=== PATIENT | female | born 2000 | race Caucasian/White ===

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

== ENCOUNTER 2019-10-25 01:08 | Emergency (ER) | payer OTHER ==
--- NOTE | 2019-10-25 01:38 | ED ---
Abdominal Pain HPI - General Chief Complaint: Abdominal Pain Stated Complaint: Abdominal pain Time Seen by Provider: 10/25/19 01:20 Source: patient, RN notes reviewed, old records reviewed Mode of arrival: ambulatory Limitations: no limitations - History of Present Illness Initial Comments: Patient is a 19-year-old female presents emergency department today for evaluation for 2 days of difficulty with urinating after having intercourse. She plans a suprapubic pain towards the lower back starting this morning. Patient states she's had no abnormal vaginal discharge. She denies any concern for STDs. She states that her last menstrual period finished 10 days ago. She reports that she's had no nausea or vomiting. - Related Data Home Medications Medication Instructions Recorded Confirmed QUEtiapine [SEROquel] 50 mg PO HS 07/10/17 07/10/17 Sertraline [Zoloft] 50 mg PO DAILY 07/10/17 07/10/17 Previous Rx's Medication Instructions Recorded Ibuprofen [Motrin] 600 mg PO Q8HR PRN #20 tab 06/07/18 Cephalexin [Keflex] 500 mg PO Q6H #40 cap 10/25/19 Phenazopyridine [Pyridium] 100 mg PO TID #9 tablet 10/25/19 Allergies Allergy/AdvReac Type Severity Reaction Status Date / Time No Known Allergies Allergy Verified 10/25/19 01:15 Review of Systems ROS Statement: Those systems with pertinent positive or pertinent negative responses have been documented in the HPI. ROS Other: All systems not noted in ROS Statement are negative. Past Medical History Additional Past Medical History / Comment(s): suicidal attempt 2 years ago History of Any Multi-Drug Resistant Organisms: None Reported Past Surgical History: Orthopedic Surgery Past Psychological History: ADD/ADHD, Anxiety, Depression Smoking Status: Vaper Past Alcohol Use History: None Reported Past Drug Use History: None Reported General Exam - General Exam Comments Initial Comments: 19-year-old female. Alert and oriented 3. Patient appears in no acute distress. Limitations: no limitations General appearance: alert, in no apparent distress Head exam: Present: atraumatic, normocephalic, normal inspection Eye exam: Present: normal appearance, PERRL, EOMI. Absent: scleral icterus, conjunctival injection, periorbital swelling ENT exam: Present: normal exam, mucous membranes moist Neck exam: Present: normal inspection. Absent: tenderness, meningismus, lymphadenopathy Respiratory exam: Present: normal lung sounds bilaterally. Absent: respiratory distress, wheezes, rales, rhonchi, stridor Cardiovascular Exam: Present: regular rate, normal rhythm, normal heart sounds. Absent: systolic murmur, diastolic murmur, rubs, gallop, clicks GI/Abdominal exam: Present: soft, tenderness (Superpubic tenderness), normal bow el sounds. Absent: distended, guarding, rebound, rigid Extremities exam: Present: normal inspection, full ROM, normal capillary refill. Absent: tenderness, pedal edema, joint swelling, calf tenderness Back exam: Present: normal inspection Neurological exam: Present: alert Psychiatric exam: Present: normal affect, normal mood Skin exam: Present: warm, dry, intact, normal color. Absent: rash Course Vital Signs 10/25/19 01:12 Temperature 98.5 F Pulse Rate 98 Respiratory 20 Rate Blood Pressure 118/83 O2 Sat by Pulse 100 Oximetry Medical Decision Making - Medical Decision Making 19-year-old female presented today with complaints of UTI symptoms polyuria after having intercourse. Denies vaginal discharge. Urine was sent for chlamydia and gonorrhea testing. Patient urinalysis is positive for white blood cells and red blood cells. She is no CVA tenderness at this time. Patient will be given IM Rocephin and Toradol for discomfort. Advised Patient to increase fluid intake and will write the Patient for Keflex for antibiotic. Advised close follow-up with primary care doctor. - Lab Data Lab Results 10/25/19 10/25/19 Range/Units 01:36 01:36 Urine Color Yellow Urine Appearance Cloudy H (Clear) Urine pH 7.0 (5.0-8.0) Ur Specific [place] 1.016 (1.001-1.035) Urine Protein 2+ H (Negative) Urine Glucose (UA) Negative (Negative) Urine Ketones Negative (Negative) Urine Blood Moderate H (Negative) Urine Nitrite Negative (Negative) Urine Bilirubin Negative (Negative) Urine Urobilinogen <2.0 (<2.0) mg/dL Ur Leukocyte Esterase Large H (Negative) Urine RBC >182 H (0-5) /hpf Urine WBC >182 H (0-5) /hpf Urine WBC Clumps Few H (None) /hpf Ur Squamous Epith Cells 6 H (0-4) /hpf Urine Bacteria Rare H (None) /hpf Urine Mucus Rare H (None) /hpf Urine HCG, Qual Not Detected (Not Detectd) Disposition Clinical Impression: UTI (urinary tract infection) Disposition: HOME SELF-CARE Condition: Stable Instructions (If sedation given, give patient instructions): Urinary Tract Infection in Women (ED) Additional Instructions: Patient advised follow-up with your primary care physician. Take the entire prescription of antibiotics. Return to the ED if any alarming signs or symptoms occur. Prescriptions: Cephalexin [Keflex] 500 mg PO Q6H #40 cap Phenazopyridine [Pyridium] 100 mg PO TID #9 tablet Is patient prescribed a controlled substance at d/c from ED?: No Referrals: None,Stated [Primary Care Provider] - 1-2 days Time of Disposition: 02:02
[2019-10-25 01:49] LABS: Appearance,Urine Cloudy (Clear); Bacteria,Urine Rare /hpf; Bilirubin,Urine Negative (Negative); Blood,Urine Moderate (Negative); Color,Urine Yellow; Glucose,Urine (UA) Negative (Negative); Ketones,Urine Negative (Negative); Leukocyte Esterase,Urine Large (Negative); Mucus,Urine Rare /hpf; Nitrite,Urine Negative (Negative); Protein,Urine 2+ (Negative); RBC,Urine >182 /hpf (0-5); Specific Gravity,Urine 1.016 (1.001-1.035); Squamous Epithelial Cell,Urine 6 /hpf (0-4); Urobilinogen,Urine <2.0 mg/dL (<2.0); WBC,Urine >182 /hpf (0-5)
[2019-10-25] MEDS ORDERED: PHENAZOPYRIDINE 100 MG TAB PO STA (01:56)
[2019-10-25] MEDS ORDERED: cefTRIAXone 1,000 MG VIAL (IM USE) IM STA (01:56)
[2019-10-25] MEDS ORDERED: KETOROLAC 15 MG/ML 1 ML VIAL IM STA (01:56)
[2019-10-25 05:43] VITALS: BP 99/53; PULSE 68; RESP 19; TEMP 98.6
[2019-10-26 16:14] LABS: C. trachomatis,PCR Positive (Neg,Equiv); Chlamydia trachomatis Source Urine; N. gonorrhoeae,PCR Negative (Neg,Equiv); Neisseria Source Urine
== END 2019-10-25 02:45 | disposition home or self-care (01) ==
LOC: EC 01:08
DX: N39.0 Urinary tract infection, site not specified (principal); F32.9 Major depressive disorder, single episode, unspecified; F41.9 Anxiety disorder, unspecified; F17.290 Nicotine dependence, other tobacco product, uncomplicated; Z79.899 Other long term (current) drug therapy
CPT/HCPCS: 81001; 81025; 87491; 87591; 87086; 99284; 96372 ×2; J0696; J1885

== ENCOUNTER 2019-11-29 13:31 | Emergency (ER) | payer OTHER ==
[2019-11-29 13:36] VITALS: BP 114/79; PULSE 64; RESP 20; TEMP 98.1
--- NOTE | 2019-11-29 14:40 | ED ---
General Adult HPI - General Chief complaint: Upper Respiratory Infection Stated complaint: Wants COVID Test Source: patient, RN notes reviewed, old records reviewed Mode of arrival: ambulatory Limitations: no limitations - History of Present Illness Initial comments: 19-year-old female patient presented to ED for evaluation of nonproductive cough chest congestion. Patient reports that for the last 3 days she had a sore throat which has since resolved. He reports that she feels that her sinuses are congested and her chest slowly congested. She denies any chest pain shortness of breath. Denies abdominal pain. Denies . Denies any recent surgeries exogenous hormones or history of coagulation disorder. Patient is requesting Covid test. Systemic: Pt denies fatigue, fever/chills, rash. Pt denies weakness, night sweats, weight loss. Neuro: Pt denies headache, visual disturbances, syncope or pre-syncope. HEENT: Pt denies ocular discharge or irritation, otalgia, rhinorrhea, pharyngitis or notable lymphadenopathy. Cardiopulmonary: Pt denies chest pain, SOB, heart palpitations, dyspnea on exertion. Abdominal/GI: Pt denies abdominal pain, n/v/d. : Pt denies dysuria, burning w/ urination, frequency/urgency. Denies new onset urinary or bowel incontinence. MSK: Pt denies myalgia, loss of strength or function in extremities. Neuro: Pt denies new onset weakness, paresthesias. - Related Data Previous Rx's Medication Instructions Recorded Albuterol Inhaler [Ventolin Hfa 1 - 2 puff INHALATION RT-QID PRN 11/29/19 Inhaler] #1 inhaler Allergies Allergy/AdvReac Type Severity Reaction Status Date / Time No Known Allergies Allergy Verified 11/29/19 15:14 Review of Systems ROS Statement: Those systems with pertinent positive or pertinent negative responses have been documented in the HPI. ROS Other: All systems not noted in ROS Statement are negative. Past Medical History Additional Past Medical History / Comment(s): suicidal attempt 2 years ago History of Any Multi-Drug Resistant Organisms: None Reported Past Surgical History: Orthopedic Surgery Additional Past Surgical History / Comment(s): lt arm,lt collar bone Past Psychological History: ADD/ADHD, Anxiety, Depression Smoking Status: Vaper Past Alcohol Use History: None Reported Past Drug Use History: None Reported General Exam - General Exam Comments Initial Comments: Constitutional: NAD, AOX3, Pt has pleasant affect. HEENT: NC/AT, trachea midline, neck supple, no lymphadenopathy. Posterior pharynx non erythematous, without exudates. External ears appear normal, without discharge. Mucous membranes moist. Eyes PERRLA, EOM intact. There is no scleral icterus. No pallor noted. Cardiopulmonary: RRR, no murmurs, rubs or gallops, no JVD noted. Lungs CTAB in anterior and posterior morton. No peripheral edema. Abdominal exam: Abdomen soft and non-distended. Abdomen non-tender to palpation in all 4 quadrants. Bowel sounds active in LLQ. No hepatosplenomegaly. No ecchymosis Neuro: CN II-XII grossly intact. No nuchal rigidity. MSK: No posterior calf tenderness bilaterally, homans sign negative bilaterally. Posterior tibialis and radial pulse +2 bilaterally. Sensation intact in upper and lower extremities. Full active ROM in upper and lower extremities, 5/5 stregnth. Limitations: no limitations Course Vital Signs 11/29/19 13:32 Temperature 98.1 F Pulse Rate 64 Respiratory 20 Rate Blood Pressure 114/79 O2 Sat by Pulse 99 Oximetry Medical Decision Making - Medical Decision Making 19-year-old female patient was ED for nasal congestion, cough. Patient vital signs stable, afebrile. Physical exam tenths acute pathology. Chest: Negative for acute process. UA negative for . Contaminated sample, was cultured and patient have repeat by primary care. Covid test pending. Patient denies use [id number] decongestants. Was prescribed an albuterol inhaler to use as needed. Which revealed any worsening symptoms. Case discussed with Dr. Armendariz. - Lab Data Lab Results 11/29/19 11/29/19 Range/Units 14:15 14:15 Urine Color Yellow Urine Appearance Cloudy H (Clear) Urine pH 5.5 (5.0-8.0) Ur Specific [place] 1.026 (1.001-1.035) Urine Protein Trace H (Negative) Urine Glucose (UA) Negative (Negative) Urine Ketones Negative (Negative) Urine Blood Negative (Negative) Urine Nitrite Negative (Negative) Urine Bilirubin Negative (Negative) Urine Urobilinogen <2.0 (<2.0) mg/dL Ur Leukocyte Esterase Negative (Negative) Urine WBC 6 H (0-5) /hpf Ur Squamous Epith Cells 23 H (0-4) /hpf Calcium Oxalate Crystal Few H (None) /hpf Urine Bacteria Rare H (None) /hpf Urine Mucus Few H (None) /hpf Urine HCG, Qual Not Detected (Not Detectd) Disposition Clinical Impression: Cough Disposition: HOME SELF-CARE Condition: Serious Instructions (If sedation given, give patient instructions): Acute Cough (ED) Additional Instructions: Follow up with PCP tomorrow. Use inhaler as needed. Have repeat UA by PCP. Self quarentine until coronavirus test result. Return to ED with any worsening symptoms. Prescriptions: Albuterol Inhaler [Ventolin Hfa Inhaler] 1 - 2 puff INHALATION RT-QID PRN #1 inhaler PRN Reason: wheezing Is patient prescribed a controlled substance at d/c from ED?: No Referrals: None,Stated [Primary Care Provider] - 1-2 days eBrnadine Porter MD [REFERRING] - 1-2 days
--- NOTE | 2019-11-29 14:56 | XR ---
EXAMINATION TYPE: XR chest 2V DATE OF EXAM: 11/29/2019 COMPARISON: 1999 INDICATION: Cough TECHNIQUE: Frontal and lateral views of the chest are obtained. FINDINGS: The heart size is normal. The pulmonary vasculature is normal. Lung morton appear clear. Some shadowing is at the bilateral lung bases. Old repair of a right clavic ular fracture is evident. IMPRESSION: 1. No acute pulmonary process.
[2019-11-29 15:06] LABS: Appearance,Urine Cloudy (Clear); Bacteria,Urine Rare /hpf; Bilirubin,Urine Negative (Negative); Blood,Urine Negative (Negative); Calcium Oxalate Crystals,Urine Few /hpf; Color,Urine Yellow; Glucose,Urine (UA) Negative (Negative); Ketones,Urine Negative (Negative); Leukocyte Esterase,Urine Negative (Negative); Mucus,Urine Few /hpf; Nitrite,Urine Negative (Negative); PH, Urine 5.5 (5.0-8.0); Protein,Urine Trace (Negative); Specific Gravity,Urine 1.026 (1.001-1.035); Squamous Epithelial Cell,Urine 23 /hpf (0-4); Urobilinogen,Urine <2.0 mg/dL (<2.0); WBC,Urine 6 /hpf (0-5)
== END 2019-11-29 15:41 | disposition home or self-care (01) ==
LOC: EC 13:31
DX: R05 Cough (principal); R09.81 Nasal congestion; Z20.828 Contact with and (suspected) exposure to other viral communicable diseases; F17.290 Nicotine dependence, other tobacco product, uncomplicated; Z91.5 Personal history of self-harm
CPT/HCPCS: 81001; 81025; 87086; 71046; 99284; U0003

== ENCOUNTER 2020-07-10 20:22 | Emergency (ER) | payer OTHER ==
[2020-07-10] MEDS ORDERED: DEXAMETHASONE SOD PHOSPHATE 10 MG/ML 1 ML VIAL PO STA (20:35)
[2020-07-10] MEDS ORDERED: IBUPROFEN 600 MG STARTER PACK 4 TAB BTL PO STA (20:35)
--- NOTE | 2020-07-10 21:59 | ED ---
General Adult HPI - General Chief complaint: ENT Stated complaint: Sore throat,Body aches,Headache Time Seen by Provider: 07/10/20 20:27 Source: patient, family Mode of arrival: ambulatory - History of Present Illness Initial comments: 19-year-old female patient presents to the emergency department today for evaluation of sore throat, body aches, and nasal congestion. Patient states symptoms started last night have worsened throughout the day today. Patient states she has been chilled. She felt like she had a fever. Denies any cough or shortness of breath. Has not taken any medications today for her symptoms. Denies any sick contacts. Denies any chance of . Has not had COVID, has not had any vaccines. - Related Data Previous Rx's Medication Instructions Recorded Albuterol Inhaler [Ventolin Hfa 1 - 2 puff INHALATION RT-QID PRN 11/29/19 Inhaler] #1 inhaler Allergies Allergy/AdvReac Type Severity Reaction Status Date / Time No Known Allergies Allergy Verified 07/10/20 20:25 Review of Systems ROS Statement: Those systems with pertinent positive or pertinent negative responses have been documented in the HPI. ROS Other: All systems not noted in ROS Statement are negative. Past Medical History Additional Past Medical History / Comment(s): suicidal attempt 2 years ago History of Any Multi-Drug Resistant Organisms: None Reported Past Surgical History: Orthopedic Surgery Additional Past Surgical History / Comment(s): lt arm,lt collar bone Past Psychological History: ADD/ADHD, Anxiety, Depression Smoking Status: Vaper Past Alcohol Use History: None Reported Past Drug Use History: None Reported General Exam General appearance: alert, in no apparent distress, other (This is a well- developed, well-nourished adult female patient in no acute distress. Vital signs upon presentation Are 97.8F, pulse 69, respirations 18, blood pressure 127/72, pulse ox 100% on room air.) Eye exam: Present: normal appearance, PERRL, EOMI. Absent: scleral icterus, conjunctival injection, periorbital swelling ENT exam: Present: mucous membranes moist, TM's normal bilaterally. Absent: normal exam, normal oropharynx (Pharyngeal erythema, tonsillar hypertrophy. No tonsillar exudate. Tonsils are symmetric, uvula is midline.) Neck exam: Present: normal inspection, full ROM, lymphadenopathy (Bilateral anterior cervical). Absent: tenderness, meningismus Respiratory exam: Present: normal lung sounds bilaterally. Absent: respiratory distress, wheezes, rales, rhonchi, stridor Cardiovascular Exam: Present: regular rate, normal rhythm, normal heart sounds. Absent: systolic murmur, diastolic murmur, rubs, gallop, clicks GI/Abdominal exam: Present: soft, normal bowel sounds. Absent: distended, tenderness, guarding, rebound, rigid Neurological exam: Present: alert, oriented X3, CN II-XII intact Psychiatric exam: Present: normal affect, normal mood Skin exam: Present: warm, dry, intact, normal color. Absent: rash Course Vital Signs 07/10/20 07/10/20 20:23 22:05 Temperature 97.8 F 98.0 F Pulse Rate 69 72 Respiratory 18 16 Rate Blood Pressure 127/72 118/68 O2 Sat by Pulse 100 98 Oximetry Medical Decision Making - Medical Decision Making 19-year-old female patient presents to the emergency department today for evaluation of nasal congestion, sore throat, body aches. Did have 99.5 temperature while here. Strep and COVID-19 test were negative. She was given Decadron and ibuprofen. Upon reevaluation states she is still having sore throat. She is instructed to increase fluids and to rest. She is instructed to follow-up the primary care physician for recheck in 1-2 days. Return parameters were discussed in detail. She verbalizes understanding and agrees with this plan. My attending is Dr. Galindo. - Lab Data Lab Results 07/10/20 07/10/20 Range/Units 21:01 21:01 Coronavirus (PCR) Not Detected (Not Detectd) Group A Strep Rapid Negative (Negative) Disposition Clinical Impression: Viral pharyngitis Disposition: HOME SELF-CARE Condition: Good Instructions (If sedation given, give patient instructions): Pharyngitis (ED) Additional Instructions: Take medications as directed. Rest. Increase fluids. Follow-up through primary care physician for recheck in 1-2 days. Return for any new, worsening, or concerning symptoms. Is patient prescribed a controlled substance at d/c from ED?: No Referrals: None,Stated [Primary Care Provider] - 1-2 days Time of Disposition: 21:59
[2020-07-10 22:08] VITALS: BP 118/68; PULSE 72; RESP 16; TEMP 98
== END 2020-07-10 22:05 | disposition home or self-care (01) ==
LOC: EC 20:22
DX: J02.8 Acute pharyngitis due to other specified organisms (principal); B97.89 Other viral agents as the cause of diseases classified elsewhere; F32.9 Major depressive disorder, single episode, unspecified; F17.290 Nicotine dependence, other tobacco product, uncomplicated; Z20.822 Contact with and (suspected) exposure to COVID-19
CPT/HCPCS: 87081; 87430; 87635; 99284; J1100

== ENCOUNTER 2020-08-01 12:52 | Emergency (ER) | payer OTHER ==
[2020-08-01 12:57] VITALS: BP 110/76; PULSE 92; RESP 16; TEMP 97.9
[2020-08-01] MEDS ORDERED: AMOXIC-POT CLAV 875MG STARTER PACK 2 TAB BTL PO STA (13:13)
--- NOTE | 2020-08-01 13:14 | ED ---
General Adult HPI - General Chief complaint: ENT Stated complaint: Sore throat Time Seen by Provider: 08/01/20 13:00 Source: patient Mode of arrival: ambulatory Limitations: no limitations - History of Present Illness Initial comments: 19-year-old female presents to the emergency room for a chief, and of not feeling well. Patient states 3 days ago she started to get a bad sore throat as well as right ear pain. States every time she swallows her right ear hurts. Patient also feels congested. Patient denies fevers or chills. Patient denies cough or shortness of breath.Patient has no other complaints at this time including shortness of breath, chest pain, abdominal pain, nausea or vomiting, headache, or visual changes. - Related Data Previous Rx's Medication Instructions Recorded Albuterol Inhaler [Ventolin Hfa 1 - 2 puff INHALATION RT-QID PRN 11/29/19 Inhaler] #1 inhaler Amoxicillin/Potassium Clav 1 tab PO Q12HR #20 tab 08/01/20 [Augmentin 875-125 Tablet] Fluticasone Nasal [place] [Flonase 1 spray EA NOSTRIL DAILY 7 Days #1 08/01/20 Nasal [place]] bottle guaiFENesin [Mucinex] 600 mg PO Q12HR PRN #20 tablet.er 08/01/20 Allergies Allergy/AdvReac Type Severity Reaction Status Date / Time No Known Allergies Allergy Verified 08/01/20 12:57 Review of Systems ROS Statement: Those systems with pertinent positive or pertinent negative responses have been documented in the HPI. ROS Other: All systems not noted in ROS Statement are negative. Past Medical History Additional Past Medical History / Comment(s): suicidal attempt 2 years ago History of Any Multi-Drug Resistant Organisms: None Reported Past Surgical History: Orthopedic Surgery Additional Past Surgical History / Comment(s): lt arm,lt collar bone Past Psychological History: ADD/ADHD, Anxiety, Depression Smoking Status: Vaper Past Alcohol Use History: None Reported Past Drug Use History: None Reported General Exam Limitations: no limitations General appearance: alert, in no apparent distress Head exam: Present: atraumatic, normocephalic, normal inspection Eye exam: Present: normal appearance, PERRL, EOMI. Absent: scleral icterus, conjunctival injection, periorbital swelling ENT exam: Present: normal exam, mucous membranes moist, TM's normal bilaterally, normal external ear exam. Absent: normal oropharynx (Patient has tonsillar exudate bilaterally. Uvula is midline, tonsillar pillars are symmetric. No evidence of abscess.) Neck exam: Present: normal inspection, full ROM. Absent: tenderness Respiratory exam: Present: normal lung sounds bilaterally. Absent: respiratory distress, wheezes, rales, rhonchi, stridor Cardiovascular Exam: Present: regular rate, normal rhythm, normal heart sounds. Absent: systolic murmur, diastolic murmur, rubs, gallop, clicks GI/Abdominal exam: Present: soft, normal bowel sounds. Absent: distended, tenderness, guarding, rebound, rigid Course Vital Signs 08/01/20 12:54 Temperature 97.9 F Pulse Rate 92 Respiratory 16 Rate Blood Pressure 110/76 O2 Sat by Pulse 97 Oximetry Medical Decision Making - Medical Decision Making Patient will be treated empirically for strep. Given she is also having right ear pain we will start with Augmentin which will cover both the ear and sore throat. She was also given symptomatic treatment. Discussed doing warm salt water gargles. She will follow-up with her doctor. She will return for any worsening symptoms. Patient was offered a covid test but declined. Disposition Clinical Impression: Pharyngitis, Ear ache Disposition: HOME SELF-CARE Condition: Good Instructions (If sedation given, give patient instructions): Strep Throat (ED), Earache (ED) Additional Instructions: Take Motrin and Tylenol for pain alternating up to every 3 hours. Make sure you were eating something with the Motrin. Take antibiotic as directed. Take Mucinex and nasal spray as directed. Follow-up with your doctor. Return for any worsening symptoms. Prescriptions: Amoxicillin/Potassium Clav [Augmentin 875-125 Tablet] 1 tab PO Q12HR #20 tab Fluticasone Nasal [place] [Flonase Nasal [place]] 1 spray EA NOSTRIL DAILY 7 Days #1 bottle guaiFENesin [Mucinex] 600 mg PO Q12HR PRN #20 tablet.er PRN Reason: Congestion Is patient prescribed a controlled substance at d/c from ED?: No Referrals: Bernadine Porter MD [REFERRING] - 1-2 days Time of Disposition: 13:13
== END 2020-08-01 13:22 | disposition home or self-care (01) ==
LOC: EC 12:52
DX: J02.9 Acute pharyngitis, unspecified (principal); H92.01 Otalgia, right ear; F32.9 Major depressive disorder, single episode, unspecified
CPT/HCPCS: 99283

== ENCOUNTER 2020-10-02 18:37 | Emergency (ER) | payer OTHER ==
[2020-10-02 18:58] VITALS: RESP 18
[2020-10-02 19:51] LABS: Appearance,Urine Clear (Clear); Bilirubin,Urine Negative (Negative); Blood,Urine Negative (Negative); Color,Urine Yellow; Glucose,Urine (UA) Negative (Negative); Ketones,Urine Negative (Negative); Leukocyte Esterase,Urine Trace (Negative); Mucus,Urine Rare /hpf; Nitrite,Urine Negative (Negative); Protein,Urine Negative (Negative); RBC,Urine 1 /hpf (0-5); Specific Gravity,Urine 1.022 (1.001-1.035); Squamous Epithelial Cell,Urine 2 /hpf (0-4); Urobilinogen,Urine <2.0 mg/dL (<2.0); WBC,Urine 4 /hpf (0-5)
[2020-10-02] MEDS ORDERED: cefTRIAXone 1,000 MG VIAL (IM USE) IM STA (22:35)
[2020-10-02] MEDS ORDERED: AZITHROMYCIN 500 MG TAB PO STA (22:35)
[2020-10-02] MEDS ORDERED: DOXYCYCLINE 100 MG CAP PO STA (22:35)
--- NOTE | 2020-10-02 22:38 | ED ---
Female Urogenital HPI - General Chief complaint: Urogenital Stated complaint: Female Time Seen by Provider: 10/02/20 22:31 Source: patient, RN notes reviewed, old records reviewed Mode of arrival: ambulatory Limitations: no limitations - History of Present Illness Initial comments: This is a 19-year-old female to the ER for evaluation and treatment today she presents today for evaluation of possible STI exposure. Patient wishes about 10 weeks . Patient herself has no symptoms, no abdominal pain. No dysuria no vaginal discharge. MD Complaint: possible STD (Patient does have possible STD exposure), other (Patient has no complaints) -: unknown Radiation: non-radiating Severity: mild Severity scale (1-10): 1 Quality: cramping Consistency: constant Improves with: none Worsens with: none Patient : Yes Associated Symptoms: denies other symptoms - Related Data Sexually active: Yes Previous Rx's Medication Instructions Recorded Albuterol Inhaler [Ventolin Hfa 1 - 2 puff INHALATION RT-QID PRN 11/29/19 Inhaler] #1 inhaler Amoxicillin/Potassium Clav 1 tab PO Q12HR #20 tab 08/01/20 [Augmentin 875-125 Tablet] Fluticasone Nasal [place] [Flonase 1 spray EA NOSTRIL DAILY 7 Days #1 08/01/20 Nasal [place]] bottle guaiFENesin [Mucinex] 600 mg PO Q12HR PRN #20 tablet.er 08/01/20 Doxycycline [Vibramycin] 100 mg PO BID 14 Days #28 capsule 10/02/20 Allergies Allergy/AdvReac Type Severity Reaction Status Date / Time No Known Allergies Allergy Verified 10/02/20 18:58 Review of Systems ROS Statement: Those systems with pertinent positive or pertinent negative responses have been documented in the HPI. ROS Other: All systems not noted in ROS Statement are negative. Past Medical History Additional Past Medical History / Comment(s): suicidal attempt 2 years ago History of Any Multi-Drug Resistant Organisms: None Reported Past Surgical History: Orthopedic Surgery Additional Past Surgical History / Comment(s): lt arm,lt collar bone Past Psychological History: ADD/ADHD, Anxiety, Depression Smoking Status: Vaper Past Alcohol Use History: None Reported Past Drug Use History: None Reported General Exam Limitations: no limitations General appearance: alert, in no apparent distress Head exam: Present: atraumatic, normocephalic, normal inspection Eye exam: Present: normal appearance, PERRL, EOMI. Absent: scleral icterus, conjunctival injection, periorbital swelling ENT exam: Present: normal exam, mucous membranes moist Neck exam: Present: normal inspection. Absent: tenderness, meningismus, lymphadenopathy Respiratory exam: Present: normal lung sounds bilaterally. Absent: respiratory distress, wheezes, rales, rhonchi, stridor Cardiovascular Exam: Present: regular rate, normal rhythm, normal heart sounds. Absent: systolic murmur, diastolic murmur, rubs, gallop, clicks GI/Abdominal exam: Present: soft, normal bowel sounds. Absent: distended, tenderness, guarding, rebound, rigid Extremities exam: Present: normal inspection, full ROM, normal capillary refill. Absent: tenderness, pedal edema, joint swelling, calf tenderness Back exam: Present: normal inspection Neurological exam: Present: alert, oriented X3, CN II-XII intact Psychiatric exam: Present: normal affect, normal mood Skin exam: Present: warm, dry, intact, normal color. Absent: rash Course Vital Signs 10/02/20 10/02/20 18:55 22:50 Temperature 98.1 F 97.9 F Pulse Rate 70 64 Respiratory 18 18 Rate Blood Pressure 113/77 121/81 O2 Sat by Pulse 100 99 Oximetry - Reevaluation(s) Reevaluation #1: 10/02/20 22:57 Medical records reviewed Reevaluation #2: 10/02/20 22:57 Patient prefers to await cultures for evaluation and treatment of possible history exposure Reevaluation #3: 10/02/20 22:57 Patient informed results, questions answered Medical Decision Making - Medical Decision Making 19 female positive possible STI exposure. Patient's urine is cultured here in the emergency department patient can be discharged home - Lab Data Lab Results 10/02/20 10/02/20 Range/Units 19:22 19:22 Urine Color Yellow Urine Appearance Clear (Clear) Urine pH 6.0 (5.0-8.0) Ur Specific [place] 1.022 (1.001-1.035) Urine Protein Negative (Negative) Urine Glucose (UA) Negative (Negative) Urine Ketones Negative (Negative) Urine Blood Negative (Negative) Urine Nitrite Negative (Negative) Urine Bilirubin Negative (Negative) Urine Urobilinogen <2.0 (<2.0) mg/dL Ur Leukocyte Esterase Trace H (Negative) Urine RBC 1 (0-5) /hpf Urine WBC 4 (0-5) /hpf Ur Squamous Epith Cells 2 (0-4) /hpf Urine Mucus Rare H (None) /hpf Urine HCG, Qual Detected (Not Detectd) Disposition Clinical Impression: STD (female), Disposition: HOME SELF-CARE Condition: Good Instructions (If sedation given, give patient instructions): (ED), Sexually Transmitted Diseases (ED) Prescriptions: Doxycycline [Vibramycin] 100 mg PO BID 14 Days #28 capsule Is patient prescribed a controlled substance at d/c from ED?: No Referrals: None,Stated [Primary Care Provider] - 1-2 days
[2020-10-02 22:55] VITALS: BP 121/81; PULSE 64; TEMP 97.9
== END 2020-10-02 22:50 | disposition home or self-care (01) ==
LOC: EC 18:37
DX: O98.311 Other infections with a predominantly sexual mode of transmission complicating pregnancy, first trimester (principal); A64 Unspecified sexually transmitted disease; F90.9 Attention-deficit hyperactivity disorder, unspecified type; F41.9 Anxiety disorder, unspecified; F32.9 Major depressive disorder, single episode, unspecified; F17.290 Nicotine dependence, other tobacco product, uncomplicated; Z3A.10 10 weeks gestation of pregnancy
CPT/HCPCS: 81001; 81025; 87491; 87591; 99283

== ENCOUNTER → 2020-12-08 | Outpatient (CLI) | payer OTHER ==
[~2020-12-08] MED LIST: cefTRIAXone 500 MG VIAL IM NR; cefTRIAXone 500 MG VIAL IM ONE
[2020-12-08 13:03] VITALS: BP 108/73; PULSE 105; RESP 16; TEMP 97.4
== END ==
LOC: PROCWHC3 12:34
PROVIDERS: ATTEND Physician Assistant
DX: O98.212 Gonorrhea complicating pregnancy, second trimester (principal); A54.9 Gonococcal infection, unspecified; O99.332 Smoking (tobacco) complicating pregnancy, second trimester; F17.200 Nicotine dependence, unspecified, uncomplicated; Z3A.00 Weeks of gestation of pregnancy not specified
CPT/HCPCS: 96372; J0696

== ENCOUNTER 2021-02-17 10:50 | Outpatient (CLI) | payer OTHER ==
--- NOTE | 2021-02-17 12:21 | US ---
EXAMINATION TYPE: US OB limited DATE OF EXAM: 02/17/2021 COMPARISON: NONE CLINICAL HISTORY: bleeding . Bleeding after intercourse. EXAM PERFORMED: Transabdominal (TA) GESTATIONAL AGE / DATING Physician Established: (32 weeks/2 days) EDC: 04/12/2021 No growth performed on today?s study per ordering physician SURVEY PLACENTA: Anterior PREVIA: No Previa Ultrasound evidence of abruption? no CERVICAL LENGTH (transabdominal: norm > 3.0cm): 3.4 cm PRESENTATION: Vertex HEART RATE: 140 bpm RHYTHM: Normal No abnormality noted. IMPRESSION: 1. Single intrauterine gestation with cardiac activity measures 140 bpm. 2. No placenta previa or shortening of the cervical length.
[2021-02-17 12:30] VITALS: BP 131/60; PULSE 81; RESP 16; TEMP 97.6
--- NOTE | 2021-03-09 17:13 | P.MSEPDOC ---
Presenting Problems - Arrival Data Date of Arrival on Unit: 02/17/21 Time of Arrival on Unit: 10:50 Mode of Transport: Portable - Complaint OB-Reason for Admission/Chief Complaint: Matthew Bleeding Comment: Patient presents to unit with bleeding that started 10 minutes before arrival, states she and her significant other had just had intercourse and the bleeding started immediately after. Patient denies contractions of leaking of fluid. Medical History - Information : 1 Para: 0 Term: 0 : 0 Abortions: Spontaneous or Elective: 0 Number of Living Children: 0 - Gestational Age Gestational Age by RADHA (wks/days): 32 Weeks and 2 Days - History Complications: Hx. Substance Abuse Comment: Patient uses [facility] Review of Systems - Review of Systems Constitutional: No problems Breast: No problems ENT: No problems Cardiovascular: No problems Respiratory: No problems Gastrointestinal: No problems Genitourinary: No problems Musculoskeletal: No problems Neurological: No problems Skin: No problems Vital Signs - Temperature Temperature: 97.6 F Temperature Source: Oral - Pulse Pulse Oximetery Pulse Rate: 81 Pulse Assessment Method: Pulse Oximetry - Respirations Respiratory Rate: 16 Oxygen Delivery Method: Room Air - Blood Pressure Sitting Blood Pressure: 131/60 Blood Pressure Mean: 83 Blood Pressure Source: Automatic Cuff Medical Screen Scoring - Cervical Exam Membranes: Intact - Uterine Contractions Intensity: Absent Resting: Soft to palpation - Assessment - Baby A Baseline FHR: 120 Heart Rate - NICHD Category: Category I (Normal) Physician Notification - Physician Notified Physician Notified Date: 02/17/21 Physician Notified Time: 11:36 Physician: Caio Khanna New Order Received: Yes - Notification Comment Comment: ORder a bedside US to check placenta, and then gently check cervix after US if placenta okay. 1213 ORders given to discharge patient home with instructions on pelvic rest. Maternal Triage Index - Urgent/Priority 2 Urgent Priority 2: Yes Provider Notified: Caio Khanna Provider Notified Time: 11:36 Criteria Met for Priority 2: Patient 32 weeks , patient bleeding after intercourse today, reactive NST, dried blood on outside of vagina, patient not noted to be actively bleeding at this time. Disposition - Disposition OB Disposition: Discharge to home, Written follow up instructions reviewed Discharge Date: 02/17/21 Discharge Time: 12:15 I agree with the RN Medical Screening Exam: Yes Physician's MSE Comment: I have neither seen nor examined the patient. Case reviewed; plan agreed upon as documented in EMR&OBIX.: Yes Diagnosis: RELATED CONDITIONS, UNSPECIFIED, THIRD TRIMESTER
== END 2021-02-17 12:15 | disposition home or self-care (01) ==
LOC: FBPOP 10:50
PROVIDERS: ATTEND Obstetrics & Gynecology
DX: O26.853 Spotting complicating pregnancy, third trimester (principal); Z3A.32 32 weeks gestation of pregnancy
CPT/HCPCS: 59025; 76815; G0463; 99213

== ENCOUNTER 2021-04-04 08:19 | Emergency (ER) | payer OTHER ==
[2021-04-04 08:24] VITALS: BP 140/93; PULSE 110; RESP 18; TEMP 97.9
--- NOTE | 2021-04-04 08:42 | ED ---
ENT HPI - General Chief complaint: Dental/Oral Stated complaint: dental infection Time Seen by Provider: 04/04/21 08:25 Source: patient, RN notes reviewed Mode of arrival: ambulatory Limitations: no limitations - History of Present Illness Initial comments: 20-year-old female presents emergency department to complaint of dental pain. Patient states her last day or so she states she has left lower dental pain she has known bad tooth states it started approximate 5 months ago but states it just became very painful. She is currently states she is due in 10 days. Patient did not follow-up with the dentist. Patient denies any fevers chills no difficulty swallowing no trismus no other complaints. - Related Data Previous Rx's Medication Instructions Recorded Penicillin V Potassium [Pen Vee K] 500 mg PO QID #40 tablet 04/04/21 Allergies Allergy/AdvReac Type Severity Reaction Status Date / Time No Known Allergies Allergy Verified 04/04/21 08:21 Review of Systems ROS Statement: Those systems with pertinent positive or pertinent negative responses have been documented in the HPI. ROS Other: All systems not noted in ROS Statement are negative. Past Medical History Past Medical History: No Reported History Additional Past Medical History / Comment(s): suicidal attempt 2 years ago History of Any Multi-Drug Resistant Organisms: None Reported Past Surgical History: Orthopedic Surgery Additional Past Surgical History / Comment(s): lt arm,lt collar bone Past Psychological History: ADD/ADHD, Anxiety, Depression Smoking Status: Never smoker Past Alcohol Use History: None Reported Past Drug Use History: None Reported General Exam Limitations: no limitations General appearance: alert, in no apparent distress Head exam: Present: atraumatic, normocephalic, normal inspection Eye exam: Present: normal appearance, PERRL, EOMI. Absent: scleral icterus, conjunctival injection, periorbital swelling ENT exam: Present: mucous membranes moist. Absent: normal exam, normal oropharynx (Left lower dentition, drainable abscess, there is some mild mandibular swelling the left no trismus. Swallowing Secretions well) Course Vital Signs 04/04/21 08:21 Temperature 97.9 F Pulse Rate 110 H Respiratory 18 Rate Blood Pressure 140/93 O2 Sat by Pulse 99 Oximetry Medical Decision Making - Medical Decision Making Patient started on Pen-Vee K for dental infection she'll continue Tylenol and she is she'll follow-up with a dentist return for any worsening change in symptoms. Disposition Clinical Impression: Dental abscess Disposition: HOME SELF-CARE Condition: Stable Instructions (If sedation given, give patient instructions): Toothache (ED), Dental Abscess (ED) Additional Instructions: Please return to the Emergency Department if symptoms worsen or any other concerns. Prescriptions: Penicillin V Potassium [Pen Vee K] 500 mg PO QID #40 tablet Is patient prescribed a controlled substance at d/c from ED?: No Referrals: None,Stated [Primary Care Provider] - 1-2 days Time of Disposition: 08:41
== END 2021-04-04 08:52 | disposition home or self-care (01) ==
LOC: EC 08:19
DX: K04.7 Periapical abscess without sinus (principal); F90.9 Attention-deficit hyperactivity disorder, unspecified type; F41.9 Anxiety disorder, unspecified; F32.A Depression, unspecified
CPT/HCPCS: 99282

== ENCOUNTER 2021-04-09 12:10 | Inpatient (IN) | payer OTHER ==
[2021-04-09] MEDS ORDERED: LIDOCAINE 1% (PF) 10 MG/ML (30 ML SDV) SQ PRN (15:03)
[2021-04-09] MEDS ORDERED: OXYTOCIN 10 UNIT/ML 1 ML VIAL IM PRN (15:03)
[2021-04-09] MEDS ORDERED: METHYLERGONOVINE 0.2 MG/ML 1 ML AMP IM PRN (15:03)
[2021-04-09] MEDS ORDERED: TERBUTALINE 1 MG/ML VIAL SQ PRN (15:03)
[2021-04-09] MEDS ORDERED: CARBOPROST TROMETHAMINE 250 MCG/ML 1 ML AMP IM PRN (15:03)
[2021-04-09] MEDS ORDERED: OXYTOCIN 30 UNITS/500 ML NS 30 UNIT in SALINE 1 500ML.BAG IV SCH (15:15)
[2021-04-09 15:23] LABS: Basophils # (A) 0.1 k/uL (0-0.2); Basophils % (A) 1 %; Eosinophils # (A) 0.2 k/uL (0-0.7); Eosinophils % (A) 2 %; HGB 11.8 gm/dL (11.4-16.0); Lymphocytes # (A) 1.3 k/uL (1.0-4.8); Lymphocytes % (A) 11 %; MCH 29.1 pg (25.0-35.0); MCHC 32.9 g/dL (31.0-37.0); MCV 88.5 fL (80.0-100.0); Mean Platelet Volume 8.2; Monocytes # (A) 0.6 k/uL (0-1.0); Monocytes % (A) 6 %; Neutrophils # (A) 9.4 k/uL (1.3-7.7); Neutrophils % (A) 80 %; Platelet Count 421 k/uL (150-450); RBC 4.06 m/uL (3.80-5.40); RDW 13.3 % (11.5-15.5); WBC 11.7 k/uL (3.8-10.6)
[2021-04-09] MEDS: LACTATED RINGERS 1,000 ML IV SCH ×2 (16:48→20:44)
--- NOTE | 2021-04-09 18:20 | P.HPOB ---
History of Present Illness H&P Date: 04/09/21 Chief Complaint: 39-5/7 weeks, early active labor The patient is a 20-year-old 1 para 0 admitted at 39-5/7 weeks as established by 16 week ultrasound. She is admitted in early active labor with regular contractions and having made cervical change in triage. All signs on labor and delivery are reassuring with a category 1 heart rate tracing. Her has been uncomplicated though she was initially found to have gonorrhea at her initial OB visit which was treated and tested for cure. Group B strep status is negative. Obstetrical history: 1 para 0 with current statistics listed in history present illness. EDC of 04/11/2021 was established by 16 week ultrasound. Laboratory workup demonstrates a blood type of AB+ with a negative antibody screen. Rubella status is immune. The remainder of the laboratory workup was within normal limits aside from the positive gonorrhea culture which was treated and then tested for cure later in the and found to be absent. One hour Glucola was normal and group B strep status is negative. Gynecologic history: Unremarkable with no history of STD findings found at the beginning of which again was treated and cured. Review of Systems Review of systems is confined to history of present illness. Past Medical History Past Medical History: No Reported History Additional Past Medical History / Comment(s): suicidal attempt 2 years ago History of Any Multi-Drug Resistant Organisms: None Reported Past Surgical History: Orthopedic Surgery Additional Past Surgical History / Comment(s): lt arm,lt collar bone Past Psychological History: ADD/ADHD, Anxiety, Depression Smoking Status: Former smoker Past Alcohol Use History: None Reported Past Drug Use History: None Reported - Past Family History Father Family Medical History: No Reported History Medications and Allergies Home Medications Medication Instructions Recorded Confirmed Type Penicillin V Potassium [Pen Vee K] 500 mg PO QID #40 tablet 04/04/21 04/09/21 Rx Allergies Allergy/AdvReac Type Severity Reaction Status Date / Time No Known Allergies Allergy Verified 04/09/21 12:34 Exam Vital Signs Temp Pulse Resp BP Pulse Ox 04/09/21 15:41 98.5 F 77 16 126/81 04/09/21 15:12 97 F L 61 16 109/74 04/09/21 15:04 97 F L 61 16 109/74 97 Intake and Output 04/09/21 04/09/2122 06:59 14:59 22:59 Other: Weight 79.379 kg 79.379 kg In general, this is a well-developed well-nourished pleasant young woman in no acute distress. Her heart has a regular rhythm and rate without murmur. Her lungs clear to auscultation bilaterally in all [place]. Her abdomen is gravid, nondistended, has normal active bowel sounds, is soft, nontender, and without any palpable masses aside from uterine fundus. Her extremities are without any cyanosis, clubbing, or edema and are nontender to palpation bilaterally. Digital cervical examination demonstrates her to 3 cm dilated, 80% effaced, the vertex in presentation at -2 station. Artificial rupture of membranes is carried out demonstrating clear fluid. Results Result Diagrams: 04/09/21 14:52 Abnormal Lab Results - Last 24 Hours (Table) 04/09/21 Range/Units 14:52 WBC 11.7 H (3.8-10.6) k/uL Neutrophils # 9.4 H (1.3-7.7) k/uL Assessment and Plan (1) Active labor at term Current Visit: Yes Status: Acute Code(s): VJM3158 - SNOMED Code(s): 09006090 Plan: The patient is admitted for active management of labor. She will have close maternal and surveillance and expectant management will be practiced. She has requested and has an epidural catheter in place for analgesia. Should there be no significant progress over the next hour or so, Pitocin augmentation will be added.
[2021-04-10] MEDS ORDERED: LANOLIN CREAM 5 GM TUBE TOPICAL PRN (00:30)
[2021-04-10] MEDS ORDERED: SIMETHICONE 80 MG CHEWABLE PO PRN (00:30)
[2021-04-10] MEDS ORDERED: OXYTOCIN 30 UNITS/500 ML NS 30 UNIT in SALINE 1 500ML.BAG IV SCH (00:30)
[2021-04-10] MEDS ORDERED: diphenhydrAMINE 50 MG CAP PO PRN (00:30)
[2021-04-10] MEDS ORDERED: ZOLPIDEM 5 MG TAB PO PRN (00:30)
[2021-04-10] MEDS ORDERED: BENZOCAINE/MENTHOL SPRAY 1 GM/SPRAY AEROSOL TOPICAL PRN (00:30)
[2021-04-10] MEDS ORDERED: diphenhydrAMINE 50 MG/ML 1 ML VIAL IVP PRN ×2 (00:30)
[2021-04-10] MEDS ORDERED: diphenhydrAMINE 25 MG CAP PO PRN (00:30)
[2021-04-10] MEDS ORDERED: HYDROCORTISONE 2.5% RECTAL CREAM 30 GM TUBE RECTAL PRN (00:30)
--- NOTE | 2021-04-10 00:36 | P.PROBDLV ---
Vaginal Delivery Note - . Vaginal Delivery Note: Findings: Viable female delivered at 09, weight of 6 lbs. 8 oz., Apgars of 9 and 9 at one and 5 minutes respectively. This is a 20-year-old 1 para 0 that was admitted at 39-5/7 weeks in active early labor. Patient had noted cervical change throughout triage. Patient was admitted to labor and delivery and did request epidural placement. Anesthesia was consulted and epidural was placed without difficulty by the anesthesia department. Patient made minimal change therefore Pitocin augmentation of labor was begun. Patient progressed through labor eventually becoming complete. Patient began pushing and brought the baby down to a , she was then placed in a modified lithotomy position, with excellent maternal effort the head was delivered followed by the anterior, posterior shoulder. The body was then delivered and placed on the maternal abdomen. After a two-minute delayed the umbilical cord was doubly clamped and cut. The placenta was delivered spontaneously intact with a three- vessel cord. On inspection the patient's vaginal vault a second-degree midline laceration was appreciated. In addition bilateral labial lacerations were noted. Lacerations were instilled with lidocaine and repaired in the usual fashion with 3-0 Rapide. Uterus is noted be firm and below the umbilicus. Estimated blood loss for this delivery 100 mL. Patient and infant tolerated delivery well and are resting comfortably.
[2021-04-10] MEDS: ACETAMINOPHEN TAB 325 MG TAB PO PRN (01:29)
[2021-04-10] MEDS: IBUPROFEN 600 MG TAB PO SCH ×4 (01:30→20:14)
[2021-04-10] MEDS: SENNOSIDES-DOCUSATE SODIUM 1 EACH TAB PO SCH ×2 (08:47→20:14)
--- NOTE | 2021-04-10 09:27 | P.PNOBGVD ---
Subjective - Subjective Patient reports: Reports appetite normal, Reports voiding normally, Reports pain well controlled, Reports ambulating normally Wisner: doing well Objective - Latest Vital Signs Latest vital signs: Vital Signs Temp Pulse Pulse Resp BP Pulse Ox 04/10/21 04:00 98.2 F 74 14 113/63 98 04/10/21 01:54 81 16 122/77 98 04/10/21 01:39 85 16 139/95 98 04/10/21 01:24 16 124/63 04/10/21 01:09 98.1 F 87 16 150/67 97 04/10/21 00:54 99 16 121/77 98 04/10/21 00:39 96 18 125/80 97 04/10/21 00:24 100 18 124/78 98 04/09/21 15:41 98.5 F 77 16 126/81 04/09/21 15:12 97 F L 61 16 109/74 04/09/21 15:04 97 F L 61 16 109/74 97 Intake and Output 04/09/21 04/10/21 04/10/21 22:59 06:59 14:59 Intake Total 375 167 Output Total 700 180 Balance -325 -13 Intake: IV 375 Intake, IV Titration 167 Amount Oxytocin 30 Units/500 ml 167 Ns 30 unit In Saline 1 500ml.bag @ Per Protocol IV .[facility]0M [facility] Rx#:[id number] Output: Urine 700 Straight 700 Estimated Blood Loss 100 Output, Quantitative 80 Blood Loss Other: Weight 79.379 kg - Exam Extremities: Present: normal Abdomen: Present: normal appearance, soft Uterus: Present: normal, firm (Fundus as tonic and nontender below the umbilicus.) - Labs Labs: Abnormal Lab Results - Last 24 Hours (Table) 04/09/21 Range/Units 14:52 WBC 11.7 H (3.8-10.6) k/uL Neutrophils # 9.4 H (1.3-7.7) k/uL Assessment and Plan (1) Active labor at term Current Visit: Yes Status: Acute Code(s): MER4063 - SNOMED Code(s): 31953674 (2) Normal spontaneous vaginal delivery Current Visit: Yes Status: Acute Code(s): O80 - ENCOUNTER FOR FULL-TERM UNCOMPLICATED DELIVERY SNOMED Code(s): 27165695 Plan: Continue routine care. I would anticipate discharge home tomorrow pending no complications.
[2021-04-10 09:34] VITALS: RESP 16
[2021-04-10] MEDS: PENICILLIN V POTASSIUM 250 MG TAB PO SCH ×4 (09:44→22:52)
[2021-04-10] MEDS ORDERED: ROPIVACAINE 100 MG, fentaNYL (PF). 200 MCG in SODIUM CHLORIDE 0.9% 76 ML EPIDURAL ONE (11:08)
[2021-04-11] MEDS: IBUPROFEN 600 MG TAB PO SCH ×2 (07:08→08:24)
--- NOTE | 2021-04-11 08:12 | P.DS ---
Providers Date of admission: 04/09/21 14:40 Expected date of discharge: 04/11/21 Attending physician: Caio Khanna Primary care physician: Stated None - Discharge Diagnosis(es) (1) Active labor at term Current Visit: Yes Status: Acute (2) Laceration of labia minora Current Visit: Yes Status: Acute (3) Normal spontaneous vaginal delivery Current Visit: Yes Status: Acute (4) Perineal laceration during delivery Current Visit: Yes Status: Acute Hospital Course: This is a 20-year-old 1 now para 1 woman who presented in spontaneous active labor at 39-5/7 weeks gestation. Following admission on she underwent artificial rupture of membranes and received an epidural anesthetic. She received Pitocin augmentation of labor. Ultimately she went on to deliver a liveborn female infant weighing 6 lbs. 8 oz. with Apgars of 9 at 1 minute and 9 at 5 minutes. The patient's course was unremarkable. By day #1 she was ambulating and voiding without difficulty and her vital signs were stable. Her lochia was decreasing. By day #2 she continued to do well on with stable vital signs and pain well-controlled with oral pain medications. She was therefore discharged home on day #2 with routine instructions for care and follow-up. Procedures: Normal spontaneous vaginal delivery Patient Condition at Discharge: Good Plan - Discharge Summary New Discharge Prescriptions: No Action Penicillin V Potassium [Pen Vee K] 500 mg PO QID #40 tablet Discharge Medication List Penicillin V Potassium [Pen Vee K] 500 mg PO QID #40 tablet 04/04/21 [Rx] Follow up Appointment(s)/Referral(s): Caio Khanna MD [STAFF PHYSICIAN] - 6 Weeks Activity/Diet/Wound Care/Special Instructions: Follow-up in the office in 6 weeks . Call with any concerning signs or symptoms including heavy vaginal bleeding, severe abdominal pain, fever greater than 101, swelling or redness of the lower extremities, foul vaginal discharge, or signs of depression. Nothing in the vagina for 6 weeks after delivery, specifically no intercourse. Discharge Disposition: HOME SELF-CARE
[2021-04-11 08:18] VITALS: BP 132/88; PULSE 113; TEMP 97.8
[2021-04-11] MEDS: SENNOSIDES-DOCUSATE SODIUM 1 EACH TAB PO SCH (08:24)
[2021-04-11] MEDS: PENICILLIN V POTASSIUM 250 MG TAB PO SCH (09:22)
[2021-04-11] MEDS: ACETAMINOPHEN TAB 325 MG TAB PO PRN (12:03)
== END 2021-04-11 12:08 | disposition home or self-care (01) | DRG 807 ==
LOC: FBPOP 12:10 → 4FBP 14:40
PROVIDERS: ADMIT Obstetrics & Gynecology; ATTEND Obstetrics & Gynecology
PROC: 10907ZC Drainage of Amniotic Fluid, Therapeutic from Products of Conception, Via Natural or Artificial Opening (ICD-10-PCS; principal; 2021-04-10)
PROC: 0KQM0ZZ Repair Perineum Muscle, Open Approach (ICD-10-PCS; principal; 2021-04-10)
PROC: 0UQMXZZ Repair Vulva, External Approach (ICD-10-PCS; principal; 2021-04-10)
PROC: 3E0R3NZ Introduction of Analgesics, Hypnotics, Sedatives into Spinal Canal, Percutaneous Approach (ICD-10-PCS; principal; 2021-04-10)
PROC: 00HU33Z Insertion of Infusion Device into Spinal Canal, Percutaneous Approach (ICD-10-PCS; principal; 2021-04-10)
PROC: 10E0XZZ Delivery of Products of Conception, External Approach (ICD-10-PCS; principal; 2021-04-10)
DX: O70.1 Second degree perineal laceration during delivery (principal); Z37.0 Single live birth; O99.344 Other mental disorders complicating childbirth; O70.0 First degree perineal laceration during delivery; Z3A.39 39 weeks gestation of pregnancy; F32.A Depression, unspecified; F41.9 Anxiety disorder, unspecified; F90.9 Attention-deficit hyperactivity disorder, unspecified type; Z87.891 Personal history of nicotine dependence; Z98.890 Other specified postprocedural states
CPT/HCPCS: 59025; 85025; 86850; 86900; 86901; 99213

== ENCOUNTER 2022-09-27 04:14 | Emergency (ER) | payer OTHER ==
[2022-09-27 04:24] VITALS: TEMP 98.8
[2022-09-27] MEDS ORDERED: SODIUM CHLORIDE 0.9% 1,000 ML IV ONE ×2 (04:47→05:59)
[2022-09-27] MEDS ORDERED: ACETAMINOPHEN TAB 325 MG TAB PO STA (04:47)
[2022-09-27 05:15] LABS: Basophils # (A) 0.1 k/uL (0-0.2); Basophils % (A) 0 %; Eosinophils # (A) 0.3 k/uL (0-0.7); Eosinophils % (A) 2 %; HCT 40.8 % (34.0-46.0); HGB 13.4 gm/dL (11.4-16.0); Lymphocytes # (A) 1.5 k/uL (1.0-4.8); Lymphocytes % (A) 10 %; MCH 28.8 pg (25.0-35.0); MCHC 32.8 g/dL (31.0-37.0); MCV 87.7 fL (80.0-100.0); Mean Platelet Volume 7.7; Monocytes # (A) 0.5 k/uL (0-1.0); Monocytes % (A) 4 %; Neutrophils # (A) 12.2 k/uL (1.3-7.7); Neutrophils % (A) 84 %; Platelet Count 326 k/uL (150-450); RBC 4.66 m/uL (3.80-5.40); RDW 12.5 % (11.5-15.5); WBC 14.6 k/uL (3.8-10.6)
[2022-09-27 05:40] LABS: ALT 13 U/L (4-34); AST 17 U/L (14-36); African American GFR (CKD) >90 (>60 ml/min/1.73 sqM); Alkaline Phosphatase 59 U/L (38-126); Anion Gap 10 mmol/L; Blood Urea Nitrogen 11 mg/dL (7-17); Calcium 9.1 mg/dL (8.4-10.2); Carbon Dioxide 23 mmol/L (22-30); Chloride 102 mmol/L (98-107); Glucose 87 mg/dL (74-99); Non-African American GFR(CKD) >90 (>60 ml/min/1.73 sqM); Potassium 3.9 mmol/L (3.5-5.1); Sodium 135 mmol/L (137-145); Total Bilirubin 0.3 mg/dL (0.2-1.3); Total Protein 7.3 g/dL (6.3-8.2)
--- NOTE | 2022-09-27 05:50 | ED ---
Abdominal Pain HPI - General Chief Complaint: OB/Uterine Contractions Stated Complaint: Abd Pain 11weeks Time Seen by Provider: 09/27/22 04:36 Source: patient Mode of arrival: ambulatory Limitations: no limitations - History of Present Illness Initial Comments: This patient is a 21-year-old woman who presents to have evaluation of suprapubic cramping. The patient states she believes she is approximately 11 weeks . Patient denies having any vaginal bleeding or discharge. She has not noted fever or chills. No vomiting. Has not had change in bowel movements. No leg pain or swelling. MD Complaint: abdominal pain -: hour(s) Location: suprapubic Radiation: none Migration to: no migration Severity: moderate Quality: cramping Consistency: intermittent Improves With: nothing Worsens With: nothing Associated Symptoms: denies other symptoms - Related Data LMP (females 10-50): 2 months Patient : Yes Previous Rx's Medication Instructions Recorded Penicillin V Potassium [Pen Vee K] 500 mg PO QID #40 tablet 04/04/21 Amoxicillin 500 mg PO Q8H #21 capsule 09/27/22 Allergies Allergy/AdvReac Type Severity Reaction Status Date / Time No Known Allergies Allergy Verified 09/27/22 04:24 Review of Systems ROS Statement: Those systems with pertinent positive or pertinent negative responses have been documented in the HPI. ROS Other: All systems not noted in ROS Statement are negative. Constitutional: Denies: fever, chills Respiratory: Denies: cough, dyspnea Cardiovascular: Denies: chest pain, palpitations Gastrointestinal: Reports: as per HPI, abdominal pain. Denies: nausea, vomiting, diarrhea, constipation Genitourinary: Denies: dysuria, frequency, hematuria Musculoskeletal: Denies: back pain Skin: Denies: rash Neurological: Denies: headache Past Medical History Past Medical History: No Reported History Additional Past Medical History / Comment(s): suicidal attempt 2 years ago History of Any Multi-Drug Resistant Organisms: None Reported Past Surgical History: Orthopedic Surgery Additional Past Surgical History / Comment(s): lt arm,lt collar bone Past Psychological History: ADD/ADHD, Anxiety, Depression Smoking Status: Current every day smoker, Vaper Past Alcohol Use History: None Reported Past Drug Use History: None Reported - Past Family History Father Family Medical History: No Reported History General Exam Limitations: no limitations General appearance: alert, in no apparent distress Head exam: Present: atraumatic, normocephalic Eye exam: Present: normal appearance. Absent: scleral icterus, conjunctival injection Respiratory exam: Present: normal lung sounds bilaterally. Absent: respiratory distress, wheezes, rales, rhonchi, stridor Cardiovascular Exam: Present: regular rate, normal rhythm, normal heart sounds. Absent: systolic murmur, diastolic murmur, rubs, gallop GI/Abdominal exam: Present: soft. Absent: distended, tenderness, guarding, rebound, rigid, mass, pulsatile mass Extremities exam: Present: normal inspection, normal capillary refill. Absent: pedal edema, calf tenderness Back exam: Present: normal inspection. Absent: CVA tenderness (R), CVA tenderness (L) Neurological exam: Present: alert Skin exam: Present: warm, dry, intact, normal color. Absent: rash Course Vital Signs 09/27/22 09/27/22 04:22 07:23 Temperature 98.8 F Pulse Rate 85 67 Respiratory 18 20 Rate Blood Pressure 130/78 112/84 O2 Sat by Pulse 99 98 Oximetry Medical Decision Making - Medical Decision Making Patient is 21-year-old woman in her early with suprapubic cramping. The patient's workup does reveal suspected urinary tract infection. The patient did have improvement in symptoms after IV fluids. We discussed appropriate further care and follow-up as well as return parameters. Was pt. sent in by a medical professional or institution ([facility], [employer], urgent care, hospital, or shelter...) When possible be specific @ -[No] Did you speak to anyone other than the patient for history (EMS, parent, family, police, friend...)? What history was obtained from this source @ -[No] Did you review nursing and triage notes (agree or disagree)? Why? @ -[I reviewed and agree with nursing and triage notes] Were old charts reviewed (outside hosp., previous admission, EMS record, old EKG, old radiological studies, urgent care reports/EKG's, shelter records)? Report findings @ -[No old charts were reviewed] Differential Diagnosis (chest pain, altered mental status, abdominal pain women, abdominal pain men, vaginal bleeding, weakness, fever, dyspnea, syncope, headache, dizziness, GI bleed, back pain, seizure, CVA, palpatations, mental health, musculoskeletal)? @ -[Differential Abdominal Pain Women: Appendicitis, Cholecystitis, diverticulosis, ischemic bowel, pancreatitis, hepatitis, UTI, gastroenteritis, AAA, incarcerated hernia, bowel obstruction, constipation, inflammatory bowel, hepatitis, peptic ulcer disease, splenic infarction, perforated viscus, vulvitis, ovarian torsion, PID, kidney stone, placenta abruption, this is not meant to be an all-inclusive list EKG interpreted by me (3pts min.). @ -[ X-rays interpreted by me (1pt min.). @ -[None done] CT interpreted by me (1pt min.). @ -[None done] U/S interpreted by me (1pt. min.). @ -[None done] What testing was considered but not performed or refused? (CT, X-rays, U/S, labs)? Why? @ -[None] What meds were considered but not given or refused? Why? @ -[None] Did you discuss the management of the patient with other professionals (professionals i.e. , PA, [employer], lab, RT, psych nurse, social sciences research scientist, end polisher, teacher, wildlife officer, case management assistant)? Give summary @ -[No] Was smoking cessation discussed for >3mins.? @ -[No] Was critical care preformed (if so, how long)? @ -[No] Were there social determinants of health that impacted care today? How? (Homelessness, low income, unemployed, alcoholism, drug addiction, transportation, low edu. Level, literacy, decrease access to med. care, [facility], rehab)? @ -[No] Was there de-escalation of care discussed even if they declined (Discuss DNR or withdrawal of care, Hospice)? DNR status @ -[No] What co-morbidities impacted this encounter? (DM, HTN, Smoking, COPD, CAD, Cancer, CVA, ARF, Chemo, Hep., AIDS, mental health diagnosis, sleep apnea, morbid obesity)? @ -[None] Was patient admitted / discharged? Hospital course, mention meds given and route, prescriptions, significant lab abnormalities, going to OR and other pertinent info. @ -[See above Undiagnosed new problem with uncertain prognosis? @ -[No] Drug Therapy requiring intensive monitoring for toxicity (Heparin, Nitro, Insulin, Cardizem)? @ -[No] Were any procedures done? @ -[No] Diagnosis/symptom? @ -[Acute urinary tract infection Abdominal pain and early Acute, or Chronic, or Acute on Chronic? @ -[Acute Uncomplicated (without systemic symptoms) or Complicated (systemic symptoms)? @ -[Uncomplicated Side effects of treatment? @ -[No] Exacerbation, Progression, or Severe Exacerbation? @ -[No] Poses a threat to life or bodily function? How? (Chest pain, [place], [place], pneumonia, PE, COPD, DKA, ARF, appy, cholecystitis, CVA, Diverticulitis, Homicidal, Suicidal, threat to staff... and all critical care pts) @ -[No] - Lab Data Result diagrams: 09/27/22 05:02 09/27/22 05:02 Lab Results 09/27/22 09/27/22 09/27/22 Range/Units 05:02 05:02 05:55 WBC 14.6 H (3.8-10.6) k/uL RBC 4.66 (3.80-5.40) m/uL Hgb 13.4 (11.4-16.0) gm/dL Hct 40.8 (34.0-46.0) % MCV 87.7 (80.0-100.0) fL MCH 28.8 (25.0-35.0) pg MCHC 32.8 (31.0-37.0) g/dL RDW 12.5 (11.5-15.5) % Plt Count 326 (150-450) k/uL MPV 7.7 Neutrophils % 84 % Lymphocytes % 10 % Monocytes % 4 % Eosinophils % 2 % Basophils % 0 % Neutrophils # 12.2 H (1.3-7.7) k/uL Lymphocytes # 1.5 (1.0-4.8) k/uL Monocytes # 0.5 (0-1.0) k/uL Eosinophils # 0.3 (0-0.7) k/uL Basophils # 0.1 (0-0.2) k/uL Sodium 135 L (137-145) mmol/L Potassium 3.9 (3.5-5.1) mmol/L Chloride 102 (98-107) mmol/L Carbon Dioxide 23 (22-30) mmol/L Anion Gap 10 mmol/L BUN 11 (7-17) mg/dL Creatinine 0.57 (0.52-1.04) mg/dL Est GFR (CKD-EPI)AfAm >90 (>60 ml/min/1.73 sqM) Est GFR (CKD-EPI)NonAf >90 (>60 ml/min/1.73 sqM) Glucose 87 (74-99) mg/dL Calcium 9.1 (8.4-10.2) mg/dL Total Bilirubin 0.3 (0.2-1.3) mg/dL AST 17 (14-36) U/L ALT 13 (4-34) U/L Alkaline Phosphatase 59 (38-126) U/L Total Protein 7.3 (6.3-8.2) g/dL Albumin 4.0 (3.5-5.0) g/dL HCG, Quant 639827.0 mIU/mL Urine Color Yellow Urine Appearance Cloudy H (Clear) Urine pH 6.0 (5.0-8.0) Ur Specific [place] 1.028 (1.001-1.035) Urine Protein Trace H (Negative) Urine Glucose (UA) Negative (Negative) Urine Ketones 2+ H (Negative) Urine Blood Negative (Negative) Urine Nitrite Negative (Negative) Urine Bilirubin Negative (Negative) Urine Urobilinogen <2.0 (<2.0) mg/dL Ur Leukocyte Esterase Large H (Negative) Urine RBC 6 H (0-5) /hpf Urine WBC 40 H (0-5) /hpf Ur Squamous Epith Cells 25 H (0-4) /hpf Urine Mucus Rare H (None) /hpf Disposition Clinical Impression: Abdominal pain affecting , UTI (urinary tract infection) Disposition: HOME SELF-CARE Condition: Good Instructions (If sedation given, give patient instructions): Abdominal Pain in (ED) Prescriptions: Amoxicillin 500 mg PO Q8H #21 capsule Is patient prescribed a controlled substance at d/c from ED?: No Referrals: None,Stated [Primary Care Provider] - 1-2 days
[2022-09-27 06:35] LABS: Appearance,Urine Cloudy (Clear); Bilirubin,Urine Negative (Negative); Blood,Urine Negative (Negative); Color,Urine Yellow; Glucose,Urine (UA) Negative (Negative); Ketones,Urine 2+ (Negative); Leukocyte Esterase,Urine Large (Negative); Mucus,Urine Rare /hpf; Nitrite,Urine Negative (Negative); Protein,Urine Trace (Negative); RBC,Urine 6 /hpf (0-5); Specific Gravity,Urine 1.028 (1.001-1.035); Squamous Epithelial Cell,Urine 25 /hpf (0-4); Urobilinogen,Urine <2.0 mg/dL (<2.0); WBC,Urine 40 /hpf (0-5)
[2022-09-27] MEDS ORDERED: AMOXICILLIN 500 MG CAP PO STA (07:06)
[2022-09-27 07:28] VITALS: BP 112/84; PULSE 67; RESP 20
== END 2022-09-27 07:29 | disposition home or self-care (01) ==
LOC: EC 04:14
DX: O26.891 Other specified pregnancy related conditions, first trimester (principal); O99.331 Smoking (tobacco) complicating pregnancy, first trimester; N39.0 Urinary tract infection, site not specified; F17.290 Nicotine dependence, other tobacco product, uncomplicated; Z3A.11 11 weeks gestation of pregnancy; Z86.59 Personal history of other mental and behavioral disorders
CPT/HCPCS: 36415; 80053; 81001; 84702; 85025; 96360; 96361; 99284

== ENCOUNTER 2023-05-04 11:47 | Inpatient (IN) | payer OTHER ==
[2023-05-04 12:49] LABS: Amphetamine Screen,Urine Not Detected (NotDetected); Barbiturate Screen,Urine Not Detected (NotDetected); Benzodiazepines Screen,Urine Not Detected (NotDetected); Cocaine Screen,Urine Not Detected (NotDetected); Methadone Screen, Urine Not Detected (NotDetected); Opiate Screen,Urine Not Detected (NotDetected); Oxycodone Screen, Urine Not Detected (NotDetected); Phencyclidine Screen,Urine Not Detected (NotDetected); Tricyclic Antidepressant,Urine Not Detected (NotDetected); Urn Cannabinoid Scrn Detected (NotDetected)
[2023-05-04 12:52] LABS: Appearance,Urine Cloudy (Clear); Bilirubin,Urine Negative (Negative); Blood,Urine Negative (Negative); Color,Urine Light Yellow; Glucose,Urine (UA) 1+ (Negative); Ketones,Urine Negative (Negative); Leukocyte Esterase,Urine Negative (Negative); Mucus,Urine Rare /hpf; Nitrite,Urine Negative (Negative); PH, Urine 6.5 (5.0-8.0); Protein,Urine Trace (Negative); RBC,Urine 1 /hpf (0-5); Specific Gravity,Urine 1.021 (1.001-1.035); Squamous Epithelial Cell,Urine 17 /hpf (0-4); Urobilinogen,Urine <2.0 mg/dL (<2.0); WBC,Urine 4 /hpf (0-5)
[2023-05-04] MEDS ORDERED: CARBOPROST TROMETHAMINE 250 MCG/ML 1 ML AMP IM PRN (14:55)
[2023-05-04] MEDS ORDERED: TERBUTALINE 1 MG/ML VIAL SQ PRN (14:55)
[2023-05-04] MEDS ORDERED: TRANEXAMIC 1,000 MG/100ML-NACL 1,000 MG in EMPTY BAG 1 BAG IV PRN (14:55)
[2023-05-04] MEDS ORDERED: OXYTOCIN 10 UNIT/ML 1 ML VIAL IM PRN (14:55)
[2023-05-04] MEDS ORDERED: miSOPROStoL 200 MCG TAB PO PRN (14:55)
[2023-05-04] MEDS ORDERED: METHYLERGONOVINE 0.2 MG/ML 1 ML AMP IM PRN (14:55)
[2023-05-04] MEDS ORDERED: OXYTOCIN 30 UNITS/500 ML NS 30 UNIT in SALINE 1 500ML.BAG IV SCH (15:00)
[2023-05-04 15:12] VITALS: RESP 16
--- NOTE | 2023-05-04 17:24 | P.HPOB ---
History of Present Illness H&P Date: 05/04/23 Chief Complaint: Postdates , no/limited care 22-year-old at 41-1/7 weeks that presented to labor and delivery with complaints of cramping. Patient has received minimal care with [address] Christiansen at approximately 18 weeks. Last menstrual period giving her a due date of 04/25 consistent with 18-week ultrasound due date of 05/02. Patient did have blood work done blood type of AB+, rubella status immune, hepatitis B surface engine negative, grew beta strep culture is unknown, hep C was negative. HIV is nonreactive. Gonorrhea and Chlamydia were sent from a urine specimen in triage. Patient states she does note good movement and denies loss of fluid. 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 2020 spontaneous vaginal delivery #2 current Review of Systems Constitutional: Denies chills, Denies fatigue, Denies fever Ears, nose, mouth and throat: Denies headache Cardiovascular: Reports leg edema Respiratory: Denies dyspnea Gastrointestinal: Denies constipation, Denies diarrhea, Denies nausea, Denies vomiting Genitourinary: Reports Past Medical History Past Medical History: No Reported History Additional Past Medical History / Comment(s): suicidal attempt 2 years ago History of Any Multi-Drug Resistant Organisms: None Reported Past Surgical History: Orthopedic Surgery Additional Past Surgical History / Comment(s): lt arm,lt collar bone Past Psychological History: ADD/ADHD, Anxiety, Depression Smoking Status: Current every day smoker Past Alcohol Use History: None Reported Past Drug Use History: None Reported - Past Family History Father Family Medical History: No Reported History Medications and Allergies Home Medications Medication Instructions Recorded Confirmed Type Penicillin V Potassium [Pen Vee K] 500 mg PO QID #40 tablet 04/04/21 04/09/21 Rx Amoxicillin 500 mg PO Q8H #21 capsule 09/27/22 Rx Allergies Allergy/AdvReac Type Severity Reaction Status Date / Time No Known Allergies Allergy Verified 05/04/23 12:12 Exam Osteopathic Statement: *. No significant issues noted on an osteopathic structural exam other than those noted in the History and Physical/Consult. Vital Signs Temp Pulse Resp BP 05/04/23 14:54 98.1 F 90 16 130/75 05/04/23 12:12 98.2 F 106 H 16 129/79 Intake and Output 05/04/23 05/04/23 05/04/23 06:59 14:59 22:59 Other: Weight 92.079 kg Targeted physical exam was performed in the state in general this is a well- nourished well-developed female in no acute distress, breathing is nonlabored, heart has a regular rate and rhythm, abdomen is gravid, cervical exam is deferred but was done by RN in triage 80/-3 station. heart tones are noted to be category 1 and she is not carla. Results Abnormal Lab Results - Last 24 Hours (Table) 05/04/23 Range/Units 12:02 Urine Appearance Cloudy H (Clear) Urine Protein Trace H (Negative) Urine Glucose (UA) 1+ H (Negative) Ur Squamous Epith Cells 17 H (0-4) /hpf Urine Mucus Rare H (None) /hpf U Marijuana (THC) Screen Detected H (NotDetected) Assessment and Plan (1) Post-dates Narrative/Plan: Given limited to no care and postdates patient is offered induction of labor. Will begin Pitocin duction of labor this evening. Options for analgesia will be discussed. Current Visit: Yes Status: Acute Code(s): O48.0 - POST-TERM SNOMED Code(s): 29897991 Plan: 22-year-old G2, P1 at 41-1/7 weeks based on last menstrual period consistent with 8 and 18-week ultrasound presents with limited/no care. Patient 1 visit where an ultrasound was performed and labs were obtained. Patient is offered induction of labor given postdates status. Patient agrees. Pitocin induction of labor will be begun later this evening.
[2023-05-04] MEDS ORDERED: NALBUPHINE 10 MG/ML (10 ML MDV) IV PRN (17:47)
[2023-05-04] MEDS: LACTATED RINGERS 1,000 ML IV SCH (18:15)
[2023-05-04] MEDS: LIDOCAINE 0.5% (PF) 5 MG/ML (50 ML SDV) SQ PRN (18:15)
[2023-05-04 18:30] LABS: Basophils # (A) 0.1 k/uL (0-0.2); Basophils % (A) 1 %; Eosinophils # (A) 0.2 k/uL (0-0.7); Eosinophils % (A) 1 %; HCT 34.1 % (34.0-46.0); HGB 10.6 gm/dL (11.4-16.0); Hypochromasia Slight; Lymphocytes # (A) 1.8 k/uL (1.0-4.8); Lymphocytes % (A) 14 %; MCH 26.2 pg (25.0-35.0); MCHC 31.2 g/dL (31.0-37.0); MCV 83.9 fL (80.0-100.0); Mean Platelet Volume 8.5; Monocytes # (A) 0.7 k/uL (0-1.0); Monocytes % (A) 5 %; Neutrophils # (A) 10.4 k/uL (1.3-7.7); Neutrophils % (A) 78 %; Platelet Count 372 k/uL (150-450); RBC 4.06 m/uL (3.80-5.40); RDW 13.8 % (11.5-15.5); WBC 13.3 k/uL (3.8-10.6)
--- NOTE | 2023-05-04 19:04 | US ---
EXAMINATION TYPE: US OB >= 14 wk fetus DATE OF EXAM: 05/04/2023 COMPARISON: None CLINICAL INDICATION: Female, 22 years old with history of complete ob ultrasound no care; Lionel valente due date. Hasn't had any ultrasound or OB appointment since 20 weeks TECHNIQUE: Transabdominal (TA) ultrasound of the gravid uterus performed with limited Doppler as justin ded. GESTATIONAL AGE / DATING Dates by LMP: 07/20/22 (41 weeks/1 days) EDC: 04/26/23 Dates by First Scan: No previous this is first scan Dates by Current Scan: (39 weeks/6 days) EDC: 05/05/23 Beta HCG (if available): Not available at this time SURVEY IUP: Single PLACENTA: Fundal/ anterior PREVIA: No Previa RODNEY: 13.4 cm Normal CERVICAL LENGTH (transabdominal: norm > 3cm): Not seen BIOMETRY PRESENTATION: Vertex, this limits evaluation of the cervix LIE: Longitudinal BPD: 8.99 cm 36 weeks / 3 days HC: 35.4 cm 41 weeks / 3 days AC: 36.9 cm 41 weeks / 0 days FL: 7.9 cm 40 weeks / 3 days ESTIMATED WEIGHT IN GRAMS: 4008 grams ESTIMATED WEIGHT IN LBS/OZ: 8 lbs. 13 oz. HC/AC: 0.96 Normal FL/AC: 21% Normal HEART RATE: 140 bpm RHYTHM: Normal Single live IUP seen measuring 39 weeks 6 days. Placenta is fundal/anterior. Cephalic presentation. IMPRESSION: 1. Single live IUP measuring 39 weeks 6 days. EDC by this exam 05/05/2023. Heart rate 140 BPM. 2. Cephalic presentation. This limits evaluation of the cervix. 3. Placenta is fundal/anterior. No evidence of previa. 4. Normal RODNEY.
[2023-05-05] MEDS: ACETAMINOPHEN TAB 325 MG TAB PO STA (04:11)
[2023-05-05] MEDS: AMPICILLIN 1,000 MG in SODIUM CHLORIDE 0.9% 50 ML IVPB SCH (04:15)
[2023-05-05] MEDS: OXYTOCIN 30 UNITS/500 ML NS 30 UNIT in SALINE 1 500ML.BAG IV SCH (06:39)
[2023-05-05] MEDS: AMPICILLIN 2,000 MG in SODIUM CHLORIDE 0.9% 100 ML IVPB STA (06:39)
[2023-05-05] MEDS ORDERED: ROPIVACAINE 5 MG/ML 30 ML VIAL ONE (11:30)
[2023-05-05] MEDS ORDERED: SODIUM CHLORIDE 0.9% 250 ML BAG ONE (11:30)
[2023-05-05] MEDS ORDERED: fentaNYL (PF) 50 MCG/ML 5 ML AMP ONE (11:30)
[2023-05-05 14:00] LABS: C. trachomatis,PCR Negative (Negative)
[2023-05-05 14:02] LABS: N. gonorrhoeae,PCR Negative (Negative)
[2023-05-05] MEDS ORDERED: diphenhydrAMINE 50 MG/ML 1 ML VIAL IVP PRN ×2 (16:41)
[2023-05-05] MEDS ORDERED: LANOLIN CREAM 1 GM TUBE TOPICAL PRN (16:41)
[2023-05-05] MEDS ORDERED: ZOLPIDEM 5 MG TAB PO PRN (16:41)
[2023-05-05] MEDS ORDERED: BENZOCAINE/MENTHOL SPRAY 1 GM/SPRAY AEROSOL TOPICAL PRN (16:41)
[2023-05-05] MEDS ORDERED: HYDROCORTISONE 2.5% RECTAL CREAM 30 GM TUBE RECTAL PRN (16:41)
[2023-05-05] MEDS ORDERED: diphenhydrAMINE 50 MG CAP PO PRN (16:41)
[2023-05-05] MEDS ORDERED: diphenhydrAMINE 25 MG CAP PO PRN (16:41)
[2023-05-05] MEDS ORDERED: SIMETHICONE 80 MG CHEWABLE PO PRN (16:41)
--- NOTE | 2023-05-05 16:45 | P.PROBDLV ---
Vaginal Delivery Note - . Vaginal Delivery Note: 22-year-old G2, P1 at 41-1/7 weeks presents to labor and delivery with complaints of cramping. Patient had [address] Christiansen this . Given patient's advanced gestational age induction of labor was offered. Patient accepted. Patient was admitted ultrasound was performed revealing IUP at 39-6/7 weeks, 8 pounds 13 ounces, vertex presentation, RODNEY of 13. Pitocin induction of labor was begun per hospital protocol. Amniotomy was performed and clear fluid was obtained. Patient progressed through labor becoming uncomfortable and requesting epidural placement. Epidural was placed without difficulty with anesthesia department. Patient progressed to complete. Once completely dilated patient began pushing and had a normal spontaneous vaginal delivery of a viable male at 1626, loose nuchal cord was delivered through. Apgars of 8 and 9 at 1 and 5 minutes respectively. Umbilical cord was doubly clamped and cut placenta was delivered spontaneously intact with a three-vessel cord being noted. On inspection of the patient's vaginal vault a first-degree vaginal laceration was appreciated, it was injected with lidocaine and repaired with 3-0 Rapide in the usual fashion. Hemostasis was appreciated after closure. All counts were noted correct x 2 at the end of the delivery. Patient and tolerated delivery well and are resting comfortably.
[2023-05-05] MEDS: IBUPROFEN 600 MG TAB PO SCH (20:25)
[2023-05-05] MEDS: SENNOSIDES-DOCUSATE SODIUM 1 EACH TAB PO SCH (20:31)
[2023-05-06] MEDS: ACETAMINOPHEN TAB 325 MG TAB PO PRN (04:57)
--- NOTE | 2023-05-06 09:34 | P.DS ---
Providers Date of admission: 05/04/23 14:06 Expected date of discharge: 05/06/23 Attending physician: Lisa Ramírez Primary care physician: Stated None - Discharge Diagnosis(es) (1) Post-dates Current Visit: Yes Status: Acute (2) Limited care Current Visit: Yes Status: Acute (3) Normal spontaneous vaginal delivery Current Visit: No Status: Acute (4) Perineal laceration during delivery Current Visit: No Status: Acute Hospital Course: 22-year-old at 41-1/7 weeks that presented to labor and delivery with limited care. Patient noted occasional cramping but ultimately stated she was worried that she had not received care and was now postdates. Patient was admitted ultrasound was performed, infant 8+ pounds on ultrasound, 39-6/7 weeks per dating parameters. Ultrasound was obtained with Dr. Christiansen at 18 weeks, consistent with last menstrual period with a 7-day discrepancy. Patient was admitted and Pitocin induction of labor was begun, amniotomy was performed and clear fluid was obtained. Patient progressed well through labor eventually becoming uncomfortable and requesting epidural. Epidural was placed without difficulty by the anesthesia department. Patient made good progress toward complete began pushing and had a normal spontaneous vaginal delivery of a viable male infant at 1626, weight of 7 pounds 7 ounces, Apgars of 8 and 9 at 1 and 5 minutes respectively. Patient did sustain a first-degree vaginal laceration, which was repaired in usual fashion. Patient's course carr s been uneventful. On this day #1 she is ambulating and voiding without difficulty. She is tolerating a regular diet without nausea or vomiting. She states her pain is well-controlled. She would like discharge home at 24 hours if possible. Patient Condition at Discharge: Good Plan - Discharge Summary New Discharge Prescriptions: No Action Penicillin V Potassium [Pen Vee K] 500 mg PO QID #40 tablet Amoxicillin 500 mg PO Q8H #21 capsule Discharge Medication List Penicillin V Potassium [Pen Vee K] 500 mg PO QID #40 tablet 04/04/21 [Rx] Amoxicillin 500 mg PO Q8H #21 capsule 09/27/22 [Rx] Follow up Appointment(s)/Referral(s): Lisa Ramírez DO [Doctor of Osteopathic Medicine] - 6 Weeks Patient Instructions/Handouts: Vaginal Delivery (DC), Vaginal Delivery (GEN) Activity/Diet/Wound Care/Special Instructions: No intercourse, tampons or douching. No heavy lifting greater than a gallon of milk. No driving for two weeks. Call with any fever, shakes or chills, with any pain not alleviated by over the counter meds, or with any quesions or concerns. Discharge Disposition: HOME SELF-CARE
[2023-05-06 12:45] LABS: Basophils % (A) 0 %; Eosinophils # (A) 0.3 k/uL (0-0.7); Eosinophils % (A) 2 %; HCT 32.2 % (34.0-46.0); HGB 9.8 gm/dL (11.4-16.0); Hypochromasia Marked; Lymphocytes # (A) 2.3 k/uL (1.0-4.8); Lymphocytes % (A) 15 %; MCH 26.4 pg (25.0-35.0); MCHC 30.6 g/dL (31.0-37.0); MCV 86.3 fL (80.0-100.0); Mean Platelet Volume 9.2; Monocytes # (A) 0.8 k/uL (0-1.0); Monocytes % (A) 5 %; Neutrophils # (A) 11.9 k/uL (1.3-7.7); Neutrophils % (A) 77 %; Platelet Count 375 k/uL (150-450); RBC 3.73 m/uL (3.80-5.40); RDW 13.9 % (11.5-15.5); WBC 15.5 k/uL (3.8-10.6)
[2023-05-06 16:06] VITALS: BP 126/85; PULSE 85; TEMP 98.1
== END 2023-05-06 17:45 | disposition home or self-care (01) | DRG 560 ==
LOC: FBPOP 11:47 → 4FBP 14:06
PROVIDERS: ADMIT Obstetrics & Gynecology Obstetrics; ATTEND Obstetrics & Gynecology Obstetrics
PROC: 10E0XZZ Delivery of Products of Conception, External Approach (ICD-10-PCS; principal; 2023-05-05)
PROC: 3E033VJ Introduction of Other Hormone into Peripheral Vein, Percutaneous Approach (ICD-10-PCS; principal; 2023-05-05)
PROC: 0HQ9XZZ Repair Perineum Skin, External Approach (ICD-10-PCS; principal; 2023-05-05)
PROC: 10907ZC Drainage of Amniotic Fluid, Therapeutic from Products of Conception, Via Natural or Artificial Opening (ICD-10-PCS; principal; 2023-05-05)
DX: O48.0 Post-term pregnancy (principal); O70.0 First degree perineal laceration during delivery; O99.334 Smoking (tobacco) complicating childbirth; O69.81X0 Labor and delivery complicated by cord around neck, without compression, not applicable or unspecified; F90.9 Attention-deficit hyperactivity disorder, unspecified type; O99.344 Other mental disorders complicating childbirth; F41.9 Anxiety disorder, unspecified; F32.A Depression, unspecified; F17.200 Nicotine dependence, unspecified, uncomplicated; Z3A.41 41 weeks gestation of pregnancy; Z37.0 Single live birth; Z91.51 Personal history of suicidal behavior; Z28.310 Unvaccinated for COVID-19; Z28.21 Immunization not carried out because of patient refusal
CPT/HCPCS: 59025; 76805; 80306; 81001; 85025; 86850; 86900; 86901; 87491; 87591; 99213

== ENCOUNTER 2024-01-05 16:27 | Emergency (ER) | payer OTHER ==
[2024-01-05 16:46] VITALS: RESP 18
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
[2024-01-05] MEDS: ACETAMINOPHEN TAB 500 MG TAB PO STA (17:20)
[2024-01-05] MEDS: MORPHINE SULFATE 2 MG/ML SYRINGE IVP STA (17:20)
[2024-01-05 17:43] LABS: Basophils % (A) 0 %; Eosinophils # (A) 0.2 k/uL (0-0.7); Eosinophils % (A) 1 %; HCT 36.4 % (34.0-46.0); HGB 11.9 gm/dL (11.4-16.0); Lymphocytes # (A) 1.3 k/uL (1.0-4.8); Lymphocytes % (A) 9 %; MCH 28.4 pg (25.0-35.0); MCHC 32.6 g/dL (31.0-37.0); MCV 86.9 fL (80.0-100.0); Mean Platelet Volume 7.3; Monocytes # (A) 0.5 k/uL (0-1.0); Monocytes % (A) 3 %; Neutrophils # (A) 11.5 k/uL (1.3-7.7); Neutrophils % (A) 85 %; Platelet Count 370 k/uL (150-450); RBC 4.18 m/uL (3.80-5.40); RDW 13.3 % (11.5-15.5); WBC 13.5 k/uL (3.8-10.6)
[2024-01-05 17:53] LABS: INR 0.9 (<1.2); Partial Thromboplastin Time 22.6 sec (22.0-30.0); Prothrombin Time 9.6 sec (10.0-12.5)
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
[2024-01-05 18:05] LABS: Anion Gap 9 mmol/L; Blood Urea Nitrogen 7 mg/dL (7-17); Carbon Dioxide 22 mmol/L (22-30); Chloride 105 mmol/L (98-107); Glucose 92 mg/dL (74-99); Potassium 3.8 mmol/L (3.5-5.1); Sodium 136 mmol/L (137-145)
[2024-01-05 18:06] LABS: ALT 44 U/L (4-34); AST 80 U/L (14-36); African American GFR (CKD) >90 (>60 ml/min/1.73 sqM); Alcohol <10 mg/dL; Alkaline Phosphatase 88 U/L (38-126); Calcium 9.3 mg/dL (8.4-10.2); Non-African American GFR(CKD) >90 (>60 ml/min/1.73 sqM); Total Bilirubin 0.4 mg/dL (0.2-1.3); Total Protein 7.5 g/dL (6.3-8.2)
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
[2024-01-05 18:52] VITALS: BP 117/79; PULSE 88; TEMP 97.9
== END 2024-01-05 18:53 | disposition home or self-care (01) ==
LOC: EC 16:27
DX: O9A.212 Injury, poisoning and certain other consequences of external causes complicating pregnancy, second trimester (principal); S23.3XXA Sprain of ligaments of thoracic spine, initial encounter; F17.200 Nicotine dependence, unspecified, uncomplicated; O99.332 Smoking (tobacco) complicating pregnancy, second trimester; Z3A.24 24 weeks gestation of pregnancy; V53.6XXA Passenger in pick-up truck or van injured in collision with car, pick-up truck or van in traffic accident, initial encounter; Y92.410 Unspecified street and highway as the place of occurrence of the external cause
CPT/HCPCS: 86900; 86901; 80053; 83605; 84484; 85025; 85610; 85730; 86850; 72072; 73000; 71045; 99285; 96374; G0480; J2270; 36415; 80320

== ENCOUNTER 2024-01-05 19:00 | Outpatient (CLI) | payer OTHER ==
[2024-01-05 20:21] VITALS: BP 123/75; PULSE 89; RESP 18; TEMP 97.3
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
== END 2024-01-05 20:15 | disposition home or self-care (01) ==
LOC: FBPOP 19:00
PROVIDERS: ATTEND Obstetrics & Gynecology Obstetrics
DX: O9A.212 Injury, poisoning and certain other consequences of external causes complicating pregnancy, second trimester (principal); G89.11 Acute pain due to trauma; Z3A.24 24 weeks gestation of pregnancy; F17.210 Nicotine dependence, cigarettes, uncomplicated
CPT/HCPCS: 99213